=== PATIENT | male | born 1985 | race Caucasian/White ===

== ENCOUNTER 2020-02-25 02:33 | Emergency (ER) | payer OTHER, SELFPAY ==
--- NOTE | ~2020-02-25 | CT_ITS ---
EXAMINATION: CT abdomen pelvis wo con DATE: 02/25/2020 03:29 INDICATION: Right flank pain and hematuria TECHNIQUE: Computed tomography (CT) of the abdomen and pelvis was performed without intravenous contr ast. The dose-length product (DLP) was 429.53 mGy-cm. Automated exposure control and iterative recons truction technique were employed. COMPARISON: None FINDINGS: The lung bases are clear. The heart size is normal. Surgical changes in the stomach are lik rhonda related to gastric bypass. The liver, spleen, pancreas, gallbladder, and adrenal glands are alayna l. There is a 4 mm nonobstructing stone of the left mid kidney. No stones are present in the right ki dney, the ureters, or the bladder. There is no hydronephrosis or hydroureter. No pathologically enlar ged abdominal or pelvic lymph nodes are identified. Right pelvic and inguinal lymph nodes are upper l imits of normal in size, likely reactive. The appendix is normal. There is no free intraperitoneal ga s or evidence of bowel obstruction. There is a fat-containing umbilical hernia. There is mild lumbar spondylosis. IMPRESSION: 1. Nonobstructing left nephrolithiasis. Reviewed, dictated and finalized at location A.
--- NOTE | ~2020-02-25 | XR_ITS ---
EXAMINATION: XR abdomen/kub 1V INDICATION: Right flank pain TECHNIQUE: Supine view of the abdomen is obtained. COMPARISON: CT of the same date FINDINGS: The left kidney stone demonstrated on CT is not identified. A phlebolith is noted in the ri ght pelvis. The bowel gas pattern is normal. IMPRESSION: 1. No radiographic correlate for the patient's symptoms. Reviewed, dictated and finalized at location A.
[2020-02-25 02:37] VITALS: BP 130/72; PULSE 71; RESP 17; TEMP 36.2; O2SAT 100
--- NOTE | 2020-02-25 03:19 | ED.BACK ---
HPI - Back Pain/Injury General Chief Complaint: Abdominal Pain Stated Complaint: Kidney Stone Time Seen by Provider: 02/25/20 02:41 Source: patient Mode of arrival: ambulatory Limitations: no limitations History of Present Illness HPI Narrative: This patient is a 34 year old male who presents for evaluation of right lower back pain . He states he developed right lower back pain 1 hour ago. He states this pain was severe but it has improved to 1/10. He does feel like his pain is increasing now. THis pain is similar to previous episode of kidney stone in the past. He also noticed blood in his urine yesterday. He denies associated nausea, vomiting, fever, chills, abdominal pain. He has not taken anything for pain. MD elicited complaint: back pain Pertinent past history: kidney stones Location: right lower back Radiation: none Exacerbating factors: none Relieving factors: none Related Data Allergies Allergy/AdvReac Type Severity Reaction Status Date / Time hydrocodone [From Vicodin] Allergy Intermediate Agitated Verified 02/25/20 02:46 acetaminophen AdvReac Intermediate unknown Verified 09/17/19 08:14 [place] Hornet Allergy Intermediate Anaphylactic Uncoded 09/17/19 08:14 Shock [place] Allergy Intermediate Anaphylactic Uncoded 09/17/19 08:14 Shock HYDROCODONE BIT AdvReac Intermediate unknown Uncoded 09/17/19 08:14 Review of Systems Review of Systems: All systems reviewed & are unremarkable except as noted in HPI and below Constitutional: Constitutional: Denies chills and Denies fever(s) Gastrointestinal: Gastrointestinal: Denies abdominal pain, Denies nausea and Denies vomiting Genitourinary: Genitourinary: Reports hematuria Musculoskeletal: Musculoskeletal: Reports back pain [facility] Past Medical History Medical History (Updated 02/25/20 @ 04:14 by Marilee Coburn MD) Hymenoptera allergy Tobacco abuse Surgical History Surgical History (Updated 02/25/20 @ 03:21 by Marilee Coburn MD) History of tonsillectomy and adenoidectomy S/P laparoscopic sleeve gastrectomy Social History Social History (System 09/17/19 @ 08:14 by Rosangela Mulligan) Tobacco type: smokeless tobacco Smokeless tobacco user: chewing tobacco Second hand tobacco smoke exposure: No Alcohol intake: current Substance use: never Substance use type: does not use Additional living arrangements comments: and 5 boys Gender identity (if verbalized by the patient): Male Spiritual care concerns: No Agree to blood products: No Exam Narrative: Exam Narrative: GENERAL: Well-appearing, well-nourished, and in no acute distress. HEAD: Normocephalic, atraumatic EYES: PERRLA and EOMI, conjunctiva clear without discharge THROAT:Mucous membranes moist, NECK: Supple, without lymphadenopathy or mass RESPIRATORY: No respiratory distress, Airway patent, Respirations non-labored, Clear to auscultation without rales, rhonchi or wheeze HEART: Regular rate and rhythm. No murmur heard. Normal peripheral pulses. ABDOMEN: Soft, nontender, nondistended, normal active bowel sounds. No masses. No rebound or guarding, No organomegaly. EXTREMITIES: No edema, normal strength with full range of motion. SKIN: Warm, dry, normal color without rash NEURO: Alert and oriented x3. CN 2-12 grossly intact. No focal deficits. PSYCH: Normal mood and affect. Course Reevaluation(s) Reevaluation #1: PAtient states he has not pain. I Discussed CT shows punctate stone on the left. There is no stone on the right. IT is possible he passed the stone on the right. Date: 02/25/20 Time: 04:10 Vital Signs Vital signs: Vital Signs Temperature 97.1 F L 02/25/20 02:37 Pulse Rate 71 02/25/20 02:37 Respiratory Rate 17 02/25/20 02:37 Blood Pressure 130/72 02/25/20 02:37 Pulse Oximetry 100 02/25/20 02:37 Temperature 97.1 F L 02/25/20 02:37 Pulse Rate 59 L 02/25/20 04:24 Respiratory Rate 18 02/25/20 04:2
--- NOTE | 2020-02-25 03:22 | PC.NURSE ---
Patient being taken to CT and xray.
[2020-02-25 03:39] LABS: Basophils Absolute Auto 0.1 K/mm3 (0.0-0.1); Basophils Percent Auto 0.6 % (0.2-1.2); Eosinophils Absolute Auto 0.9 K/mm3 (0-0.3); Eosinophils Percent Auto 11.5 % (0-4.4); Hematocrit 50.4 % (42.0-52.0); Hemoglobin 16.3 g/dL (14.0-18.0); Immature Granulocyte Absolute 0.04 K/mm3 (0.00-0.031); Immature Granulocyte Percent A 0.5 % (0-0.5); Lymphocytes Absolute Auto 2.87 K/mm3 (0.9-3.2); Lymphocytes Percent Auto 36.3 % (18.3-44.2); Mean Corpuscular HGB Conc 32.3 g/dl (32-36); Mean Corpuscular Hemoglobin 31.3 pg (26-34); Mean Corpuscular Volume 96.9 fl (80-100); Mean Platelet Volume 9.6 fl (7.4-10.4); Monocytes Absolute Auto 0.6 K/mm3 (0.1-0.6); Monocytes Percent Auto 7.2 % (2.6-8.5); Neutrophils Absolute Auto 3.5 K/mm3 (1.3-6.7); Neutrophils Percent Auto 43.9 % (45.5-73.1); Platelet Count Result 304 k/mm3 (150-375); Red Cell Distribution Width 14.6 % (11.5-14.5); White Blood Count 7.9 K/mm3 (4.5-10.0)
[2020-02-25 03:48] LABS: Add Urine Microscopic? YES; Appearance Urine Cloudy (Clear); Bilirubin Urine Negative (Negative); Blood Urine 3+ (Negative); Color Urine Yellow (Yellow); Glucose Urine UA Negative (Negative); Ketones Urine Trace mg/dL (Negative); Leukocyte Esterase Ur Negative LEU/UL (Negative); Mucus Urine Moderate /lpf; Nitrate Urine Negative (Negative); Protein Urine 2+ mg/dL (Negative); RBC Urine >75 /hpf (0-2); Specific Grav Ur 1.028 (1.001-1.035)
[2020-02-25 04:03] LABS: Anion Gap 8 mmol/L (8-16); Blood Urea Nitrogen 11 mg/dL (9-20); Calcium 9.2 mg/dL (8.4-10.2); Carbon Dioxide 28 mmol/L (22-30); Chloride 103 mmol/L (98-107); Estimated CRCL calculation 121 ml/min; Estimated Glomerular Filt Rate > 60; Glucose 83 mg/dL (75-110); Potassium 4.5 mmol/L (3.4-5.0); Sodium 139 mmol/L (137-145)
[2020-02-25 04:24] VITALS: BP 107/71; PULSE 59; RESP 18; O2SAT 98
== END 2020-02-25 04:26 | disposition home or self-care (01) ==
PROVIDERS: Emergency Provider General Practice; PCP Family Medicine
DX: N20.0 Calculus of kidney (principal); R31.9 Hematuria, unspecified; Z87.442 Personal history of urinary calculi; Z98.84 Bariatric surgery status; F17.220 Nicotine dependence, chewing tobacco, uncomplicated
CPT/HCPCS: 36415; 74018; 74176; 80048; 81001; 85025; 96365; 99284; J0131

== ENCOUNTER 2020-04-27 06:54 | Emergency (ER) | payer OTHER, SELFPAY ==
--- NOTE | ~2020-04-27 | CT_ITS ---
EXAMINATION: CT abdomen pelvis wo con DATE: 04/27/2020 10:19 INDICATION: Left flank pain TECHNIQUE: Computed tomography (CT) of the abdomen and pelvis was performed without intravenous contr ast. The dose-length product (DLP) was 664.51 mGy-cm. Automated exposure control and iterative recons truction technique were employed. COMPARISON: 02/25/2020 FINDINGS: The lung bases are clear. The heart size is normal. Surgical changes in the stomach are con sistent with gastric bypass. The liver, spleen, pancreas, gallbladder, and adrenal glands are normal. The right kidney is unremarkable. There is a 4 mm stone (previously identified in the kidney) at the left ureteropelvic junction which causes mild hydronephrosis. No pathologically enlarged abdominal o r pelvic lymph nodes are identified. There is no free intraperitoneal gas or evidence of bowel obstru ction. The appendix is normal. There is a tiny fat-containing umbilical hernia. There is mild lumbar spondylosis. IMPRESSION: 1. 4 mm stone at the left ureteropelvic junction causing mild hydronephrosis. Reviewed, dictated and finalized at location A. DRAWING CHECKER
--- NOTE | ~2020-04-27 | XR_ITS ---
EXAMINATION: XR abdomen/kub 1V EXAM DATE: 04/27/2020 09:55 INDICATION: Left-sided flank pain, history of right-sided stone 3 months ago. TECHNIQUE: Frontal projection of the upper abdomen, frontal projection lower abdomen/pelvis for inter pretation. There is no prior study for comparison. FINDINGS: There is expected amount of colonic stool and gas. No small bowel dilation, nonobstructiv e bowel gas pattern. There are no suspicious calcifications identified. There is no organomegaly suspected. The bones are unremarkable. IMPRESSION: Unremarkable abdomen x-ray exam. Reviewed, dictated and finalized at location B. GANG SAWYER
[2020-04-27 06:57] VITALS: BP 140/83; PULSE 72; RESP 18; TEMP 35.8; O2SAT 100
[2020-04-27 07:25] LABS: Basophils Percent Auto 0.4 % (0.2-1.2); Eosinophils Absolute Auto 0.1 K/mm3 (0-0.3); Eosinophils Percent Auto 0.9 % (0-4.4); Hematocrit 48.3 % (42.0-52.0); Hemoglobin 16.7 g/dL (14.0-18.0); Immature Granulocyte Absolute 0.02 K/mm3 (0.00-0.031); Immature Granulocyte Percent A 0.3 % (0-0.5); Lymphocytes Absolute Auto 1.96 K/mm3 (0.9-3.2); Mean Corpuscular HGB Conc 34.6 g/dl (32-36); Mean Corpuscular Hemoglobin 31.3 pg (26-34); Mean Corpuscular Volume 90.6 fl (80-100); Mean Platelet Volume 9.2 fl (7.4-10.4); Monocytes Absolute Auto 0.6 K/mm3 (0.1-0.6); Monocytes Percent Auto 7.3 % (2.6-8.5); Neutrophils Absolute Auto 5.2 K/mm3 (1.3-6.7); Neutrophils Percent Auto 66.1 % (45.5-73.1); Platelet Count Result 215 k/mm3 (150-375); Red Blood Count 5.33 M/mm3 (4.6-6.20); White Blood Count 7.8 K/mm3 (4.5-10.0)
[2020-04-27] MEDS: KETOROLAC 15 MG/ML VIAL (*BKC) IV PUSH (07:41)
[2020-04-27 07:42] LABS: Anion Gap 9 mmol/L (8-16); Blood Urea Nitrogen 15 mg/dL (9-20); Calcium 9.9 mg/dL (8.4-10.2); Carbon Dioxide 29 mmol/L (22-30); Chloride 102 mmol/L (98-107); Estimated CRCL calculation 105 ml/min; Estimated Glomerular Filt Rate > 60; Glucose 112 mg/dL (75-110); Potassium 3.6 mmol/L (3.4-5.0); Sodium 140 mmol/L (137-145)
--- NOTE | 2020-04-27 08:43 | PC.NURSE ---
Pt attempting to provide urine sample at this time
--- NOTE | 2020-04-27 08:44 | PC.NURSE ---
Addendum entered by Jayla Hughes RN 04/27/20 08:46: Time:[id number] Original Note: Pt states he is in too much pain to attempt to give urine sample. Pt is visible uncomfortable, unable to sit in one spot, moaning
[2020-04-27 09:25] LABS: Add Urine Microscopic? YES; Appearance Urine Clear (Clear); Bilirubin Urine Negative (Negative); Blood Urine 3+ (Negative); Color Urine Yellow (Yellow); Glucose Urine UA Negative (Negative); Ketones Urine Negative (Negative); Leukocyte Esterase Ur Negative LEU/UL (Negative); Mucus Urine Heavy /lpf; Nitrate Urine Negative (Negative); Protein Urine 2+ mg/dL (Negative); RBC Urine >75 /hpf (0-2); Specific Grav Ur 1.028 (1.001-1.035)
[2020-04-27 10:24] VITALS: BP 121/70; PULSE 49; RESP 18; O2SAT 98
--- NOTE | 2020-04-27 11:12 | ED.GENADULT ---
HPI - General Adult General Chief complaint: Back Pain/Injury Stated complaint: left flank pain Time Seen by Provider: 04/27/20 07:17 History of Present Illness HPI narrative: Patient is a 34-year-old male who presents ER with left-sided flank pain. Sudden onset this morning. Sharp and nonradiating. No nausea vomiting or sweats. Feels similar to previous kidney stone. Has a known stone in the left kidney. No urinary frequency/urgency/hematuria/testicular pain. No alleviating factors Related Data Allergies Allergy/AdvReac Type Severity Reaction Status Date / Time hydrocodone [From Vicodin] Allergy Intermediate Agitated Verified 04/27/20 07:26 acetaminophen AdvReac Intermediate unknown Verified 04/27/20 07:26 ibuprofen AdvReac Other Verified 04/27/20 07:26 [place]et Allergy Intermediate Anaphylactic Uncoded 04/27/20 07:26 Shock [place] Allergy Intermediate Anaphylactic Uncoded 04/27/20 07:26 Shock HYDROCODONE BIT AdvReac Intermediate unknown Uncoded 04/27/20 07:26 Review of Systems Review of Systems: All systems reviewed & are unremarkable except as noted in HPI and below Constitutional: Constitutional: Denies chills, Denies fever(s) and Denies weakness ENT: Denies nasal congestion and Denies sore throat Gastrointestinal: Gastrointestinal: Denies abdominal pain, Denies diarrhea, Denies nausea and Denies vomiting Genitourinary: Genitourinary: Denies oliguria, Denies dysuria and Denies urinary frequency Comments: Left flank pain PMFSH Past Medical History Medical History (Updated 04/27/20 @ 11:21 by Hussein López MD) Hymenoptera allergy Kidney stones Tobacco abuse Surgical History Surgical History (Updated 04/27/20 @ 11:20 by Hussein López MD) H/O gastric bypass History of tonsillectomy and adenoidectomy S/P laparoscopic sleeve gastrectomy Family History Family History (System 09/17/19 @ 08:14 by Rosangela Mulligan) Father Heart disease Grandparent Parkinsons disease Grandparent Diabetes mellitus Grandparent Heart attack Grandparent Lung cancer Cerebrovascular accident Father Hypertension Family history of coronary artery disease Grandparent Hypertension Family history of lung cancer Family history of coronary artery disease Social History Social History (System 03/27/20 @ 08:14 by Rosangela Rousseau Tobacco type: smokeless tobacco Smokeless tobacco user: chewing tobacco Second hand tobacco smoke exposure: No Alcohol intake: current Substance use: never Substance use type: does not use Additional living arrangements comments: and 5 boys Gender identity (if verbalized by the patient): Male Spiritual care concerns: No Agree to blood products: No Exam Narrative: Exam Narrative: GENERAL: Well-appearing, well-nourished, and in no acute distress. HEAD: Normocephalic, atraumatic. ENT: Mucous membranes moist. CHEST: Clear to auscultation. No respiratory distress. HEART: Regular rate and rhythm. Normal peripheral pulses. ABDOMEN: Soft, nontender, nondistended. No CVA tenderness. EXTREMITIES: Normal range of motion. No edema. SKIN: Warm, dry, no rash. NEURO: Alert and oriented x3. Course Course Emergency Course: Patient informed of results. Discharge home. Recommend urology follow-up. Vital Signs Vital signs: Vital Signs Temperature 96.5 F L 04/27/20 06:57 Pulse Rate 72 04/27/20 06:57 Respiratory Rate 18 04/27/20 06:57 Blood Pressure 140/83 04/27/20 06:57 Pulse Oximetry 100 04/27/20 06:57 Temperature 96.5 F L 04/27/20 06:57 Pulse Rate 49 L 04/27/20 10:24 Respiratory Rate 18 04/27/20 10:24 Blood Pressure 121/70 04/27/20 10:24 Pulse Oximetry 98 04/27/20 10:24 Medical Decision Making Vital Signs Vital Signs: Vital Signs Temperature 96.5 F L 04/27/20 06:57 Pulse Rate 72 04/27/20 06:57 Respiratory Rate 18 04/27/20 06:
[2020-04-27 11:55] VITALS: BP 137/63; PULSE 55; RESP 18; O2SAT 100
== END 2020-04-27 12:10 | disposition home or self-care (01) ==
PROVIDERS: Emergency Provider Emergency Medicine; PCP Family Medicine
DX: N13.2 Hydronephrosis with renal and ureteral calculous obstruction (principal); Z87.442 Personal history of urinary calculi; Z98.84 Bariatric surgery status; F17.220 Nicotine dependence, chewing tobacco, uncomplicated
CPT/HCPCS: 36415; 74018; 74176; 80048; 81001; 85025; 87086; 96374; 99284; J1885

== ENCOUNTER 2022-01-02 09:04 | Emergency (ER) | payer OTHER, SELFPAY ==
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
[2022-01-02 09:18] VITALS: BP 125/70; PULSE 70; RESP 16; TEMP 36.7; O2SAT 99
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
== END 2022-01-02 10:23 | disposition home or self-care (01) ==
PROVIDERS: Emergency Provider Nurse Practitioner; PCP Family Medicine
DX: S13.9XXA Sprain of joints and ligaments of unspecified parts of neck, initial encounter (principal); V43.52XA Car driver injured in collision with other type car in traffic accident, initial encounter; Z98.84 Bariatric surgery status
CPT/HCPCS: 72050; 99213; G0463

== ENCOUNTER 2022-05-08 16:27 | Emergency (ER) | payer OTHER, SELFPAY ==
--- NOTE | ~2022-05-08 | XR_ITS ---
EXAMINATION: XR finger 5th LT min 2V DATE: 05/08/2022 16:56 INDICATION: Crush injury to the left fifth digit TECHNIQUE: Dorsal palmar, lateral and oblique views of the left fifth digit were obtained COMPARISON: None FINDINGS: Amputation of the tip of the distal phalanx of the left fifth digit which includes the tuft of the di stal phalanx of the left fifth digit. No other fractures identified. Mild osteoarthritis at the fifth distal interphalangeal joint. IMPRESSION: 1. Open/compound fracture with amputation of the tip of the left fifth digit which includes the tuft of the distal phalanx. Reviewed, dictated and finalized at location B. L MACHINE OPERATOR IMPRESSION: 1. Open/compound fracture with amputation of the tip of the left fifth digit wh ich includes the tuft of the distal phalanx.
[2022-05-08 16:33] VITALS: BP 123/81; PULSE 76; RESP 16; TEMP 36.3; O2SAT 100
--- NOTE | 2022-05-08 17:25 | ED.GENADULT ---
HPI - General Adult General Chief complaint: Extremity Injury, Upper Stated complaint: cut off right finger end Time Seen by Provider: 05/08/22 16:48 Source: patient Mode of arrival: ambulatory Limitations: no limitations History of Present Illness HPI narrative: 36 years old white male presented to the ED with left fifth finger injury. Patient was moving deep freezer somehow slipped and landed on the tip of his left fifth finger., Amputated. Unknown duration of tetanus shot. Patient denies other injuries Related Data Allergies Allergy/AdvReac Type Severity Reaction Status Date / Time hydrocodone [From Vicodin] Allergy Intermediate Agitated Verified 02/01/22 09:22 acetaminophen AdvReac Intermediate unknown Verified 02/01/22 09:22 ibuprofen AdvReac Unknown Other Verified 02/01/22 09:22 [place]et Allergy Intermediate Anaphylactic Uncoded 11/30/21 12:18 Shock [place] Allergy Intermediate Anaphylactic Uncoded 11/30/21 12:18 Shock HYDROCODONE BIT AdvReac Intermediate unknown Uncoded 11/30/21 12:18 Review of Systems Review of Systems: All systems reviewed & are unremarkable except as noted in HPI and below PMFSH Past Medical History Medical History Atopic dermatitis Hymenoptera allergy Kidney stones Tobacco abuse 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 ) Tobacco type: cigarettes (0.5 for the past 2 years. ) and smokeless tobacco Smokeless tobacco user: chewing tobacco Second hand tobacco smoke exposure: No Alcohol intake: current Alcohol use details: rarely Substance use: never Substance use type: does not use Additional living arrangements comments: and 5 boys Gender identity (if verbalized by the patient): Male Spiritual care concerns: No Agree to blood products: No Exam Narrative: General appearance: Well-developed, well-nourished Skin: Normal color Head: Normocephalic, nontraumatic Vascular: Normal peripheral pulses, normal capillary refill. Musculoskeletal: Amputation of the tip of the left fifth finger. Controlled bleeding. Exposed bone Neurologic: Alert and oriented ?3, FLATWORK IRONER is normal as tested, no gross motor deficit Course REPAIR OPERATOR/PA Physician Supervision Patient declined to go to [facility] ED by ambulance and he will drive over there. Consultations Consultation #1: Dr. Beyer Date: 05/08/22 Time: 17:54 Consultation #2: DR WILKINSON, hand surgeon at [facility] who accepted patient transfer to [facility] Date: 05/08/22 Time: 17:54 Consultation #3: DR GARCIA, hand surgeon at [place] who is telling me that reconnection of the distal part of the finger is not recommended. Additional Consultation(s): DR DUQUE, emergency room at [facility] who accepted patient patient Vital Signs Vital signs: Vital Signs Tem
[2022-05-08] MEDS: TETANUS,DIPHTHERIA,AC PERTUSSIS ADULT (0.5 ML) BOOSTRIX IM (17:46)
[2022-05-08] MEDS: ONDANSETRON INJ 4 MG/2 ML VIAL IV PUSH (17:46)
[2022-05-08] MEDS: HYDROmorphone HCL INJ (*CRX) 1 MG/ML SYR 0.5 MG IV PUSH ×2 (17:48→18:39)
[2022-05-08] MEDS: ceFAZolin 2 GM/D5W 50 ML 2 GM/50 ML BAG IVPB (18:02)
== END 2022-05-08 19:30 | disposition short-term general hospital (02) ==
PROVIDERS: Emergency Provider Emergency Medicine; PCP Family Medicine
DX: S62.637B Displaced fracture of distal phalanx of left little finger, initial encounter for open fracture (principal); W20.8XXA Other cause of strike by thrown, projected or falling object, initial encounter; Z72.0 Tobacco use; Z87.442 Personal history of urinary calculi; Z23 Encounter for immunization
CPT/HCPCS: 73140; 90471; 90715; 96365; 96375; 96376; 99284; J0690; J1170; J2405

== ENCOUNTER 2022-12-19 05:10 | Observation (INO) | payer OTHER, SELFPAY ==
[2022-12-19] VITALS (9 sets, daily range): BP systolic 117–137; BP diastolic 76–87; PULSE 53–71; RESP 14–18; TEMP 36.3–36.7; O2SAT 97–100
--- NOTE | ~2022-12-19 | XR_ITS ---
EXAMINATION: XR abdomen/kub 1V INDICATION: Left flank pain TECHNIQUE: Supine views of the abdomen were obtained on 2 radiographs. COMPARISON: CT from today FINDINGS: A 4 mm stone projects in the expected location of the proximal left ureter, overlying the l eft L2 transverse process, corresponding to the stone described on today's CT. No additional urolithi asis is identified. The bowel gas pattern is normal. There is a phlebolith of the right pelvis. There is mild osteoarthritis of the hips. IMPRESSION: 1. 4 mm proximal left ureteral stone. Reviewed, dictated and finalized at location L.
--- NOTE | ~2022-12-19 | CT_ITS ---
Non-contrast CT scan of the Abdomen and Pelvis Clinical indication: Left flank pain, hematuria Technique: 2.5 mm axial scans were obtained through the abdomen and pelvis without intravenous or or al contrast. Dose reduction technique was used on this scan by utilizing automated exposure control a nd iterative reconstruction technique. The dose-length product (DLP) was 231.64 mGy-cm. COMPARISON: 04/27/2020 Findings: Images through the lung bases reveal no abnormalities. 5 mm proximal left ureteral stone is present (axial image 72), with mild left hydronephrosis and mild left perinephric stranding. Additional punctate nonobstructing left renal stone present. No right re nal or right ureteral stone. No right hydronephrosis. The liver, spleen, pancreas, gallbladder, and adrenals appear normal. There is no aortic aneurysm. There is no evidence of bowel obstruction. Normal appendix. Images through the pelvis were performed. There is no evidence of ascites or lymphadenopathy. Urinary bladder unremarkable. Prostate gland and seminal vesicles are unremarkable. Impression: 5 mm proximal left ureteral stone with mild left hydronephrosis. Additional punctate nonobstructing left renal stone. Reviewed, dictated and finalized at [facility]. Impression: 5 mm proximal left ureteral stone with mild left hydronephrosis. Additional punctate nonobstructing left renal stone.
--- NOTE | ~2022-12-19 | XR_ITS ---
Supine and upright views of the abdomen Clinical history: Left ureteral stone COMPARISON: 12/19/2022 Findings: Bowel gas pattern is nonspecific. No evidence for obstruction or free air. Probable 3 mm le ft ureteral stone projecting between the level of the L2 and L3 transverse processes. Osseous structu res are intact. Impression: Probable 3 mm mid left ureteral stone, as detailed above. Reviewed, dictated and finalized at location . Impression: Probable 3 mm mid left ureteral stone, as detailed above.
[2022-12-19 05:28] LABS: Basophils Absolute Auto 0.1 K/mm3 (0.0-0.1); Basophils Percent Auto 0.6 % (0.2-1.2); Eosinophils Absolute Auto 0.1 K/mm3 (0-0.3); Eosinophils Percent Auto 0.8 % (0-4.4); Hematocrit 43.5 % (42.0-52.0); Hemoglobin 14.6 g/dL (14.0-18.0); Immature Granulocyte Absolute 0.05 K/mm3 (0.00-0.031); Immature Granulocyte Percent A 0.5 % (0-0.5); Lymphocytes Absolute Auto 2.23 K/mm3 (0.9-3.2); Mean Corpuscular HGB Conc 33.6 g/dl (32-36); Mean Corpuscular Hemoglobin 31.3 pg (26-34); Mean Corpuscular Volume 93.3 fl (80-100); Mean Platelet Volume 9.6 fl (7.4-10.4); Monocytes Percent Auto 9.3 % (2.6-8.5); Neutrophils Absolute Auto 7.2 K/mm3 (1.3-6.7); Neutrophils Percent Auto 67.8 % (45.5-73.1); Platelet Count Result 209 k/mm3 (150-375); Red Blood Count 4.66 M/mm3 (4.6-6.20); Red Cell Distribution Width 12.4 % (11.5-14.5); White Blood Count 10.6 K/mm3 (4.5-10.0)
[2022-12-19 05:38] LABS: Alanine Aminotransferase 25 U/L (6-50); Albumin Level 4.2 g/dL (3.5-5.1); Alkaline Phosphatase 44 U/L (38-126); Anion Gap 7 mmol/L (8-16); Aspartate Amino Transferase 28 U/L (17-59); Bilirubin,Total 0.8 mg/dL (0.2-1.3); Blood Urea Nitrogen 20 mg/dL (9-20); Calcium 9.2 mg/dL (8.4-10.2); Carbon Dioxide 26 mmol/L (22-30); Chloride 104 mmol/L (98-107); Estimated CRCL calculation 86 ml/min; Estimated Glomerular Filt Rate > 60; Glucose 93 mg/dL (65-110); Potassium 3.8 mmol/L (3.4-5.0); Sodium 137 mmol/L (137-145)
[2022-12-19] MEDS: HYDROmorphone HCL INJ (*CRX) 1 MG/ML SYR IV PUSH ×6 (05:57→20:56)
[2022-12-19] MEDS: SODIUM CHLORIDE 0.9% IV 1,000 ML 999 ML IV CONT (05:58)
[2022-12-19] MEDS: ONDANSETRON INJ 4 MG/2 ML VIAL IV PUSH ×2 (05:59→17:55)
[2022-12-19 06:15] LABS: Appearance Urine Turbid (Clear); Bacteria Urine None Seen /hpf; Bilirubin Urine 1+ (Negative); Blood Urine 3+ (Negative); Calcium Oxalate Crystals Urine Present /hpf; Color Urine Dark Yellow (Yellow); Glucose Urine UA Negative (Negative); Ketones Urine Negative (Negative); Leukocyte Esterase Ur 1+ LEU/UL (Negative); Mucus Urine Present /lpf; Nitrate Urine Negative (Negative); Protein Urine 2+ mg/dL (Negative); RBC Urine >100 /hpf (0-2); Squamous Epithelial Cell Urine None seen /hpf (Few); WBC Urine 0-5 /hpf; pH Urine 5.5 (5.0-9.0)
[2022-12-19 06:16] LABS: Specific Grav Ur 1.039 (1.001-1.035)
[2022-12-19 06:18] LABS: Add Urine Microscopic? YES
--- NOTE | 2022-12-19 06:36 | ED.GENADULT ---
HPI - General Adult General Chief complaint: Urogenital-Male <Haim Cruz MD - Last Filed: 12/19/22 19:02> Stated complaint: kidney stone <Haim Cruz MD - Last Filed: 12/19/22 19:02> Time Seen by Provider: 12/19/22 05:57 <Haim Cruz MD - Last Filed: 12/19/22 19:02> History of Present Illness HPI narrative: 37-year-old male with history of kidney stones presented the emergency department for evaluation of left flank pain. Patient states he started having the pain on Friday and the pain improved and then once again the pain worsened again on Friday and has persisted since midnight. Patient does report passing blood in his urine since last night. Patient is not on any blood thinners. Patient does have a prior history of kidney stones approximately 2 years ago's. <Haim Cruz MD - Last Filed: 12/19/22 19:02> Related Data Allergies/adverse reactions: Allergies Allergy/AdvReac Type Severity Reaction Status Date / Time hydrocodone [From Vicodin] Allergy Intermediate Agitated Verified 12/19/22 05:17 acetaminophen AdvReac Intermediate unknown Verified 12/19/22 05:17 ibuprofen AdvReac Unknown Other Verified 12/19/22 05:17 [place]et Allergy Intermediate Anaphylactic Uncoded 12/19/22 05:17 Shock [place] Allergy Intermediate Anaphylactic Uncoded 12/19/22 05:17 Shock <Haim Cruz MD - Last Filed: 12/19/22 19:02> Review of Systems Review of Systems: All systems reviewed & are unremarkable except as noted in HPI and below <Haim Cruz MD - Last Filed: 12/19/22 19:02> PMFSH Past Medical History Medical History: Medical History Atopic dermatitis Hymenoptera allergy Kidney stones Tobacco abuse 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 <Haim Cruz MD - Last Filed: 12/19/22 19:02> Surgical History Surgical History: Surgical History H/O gastric bypass H/O gastric bypass History of tonsillectomy and adenoidectomy S/P laparoscopic sleeve gastrectomy <Haim Cruz MD - Last Filed: 12/19/22 19:02> Family History Family History: Family History Father Heart disease Grandparent Parkinsons disease Grandparent Diabetes mellitus Grandparent Heart attack Grandparent Lung cancer Cerebrovascular accident Father Hypertension Family history of coronary artery disease Grandparent Hypertension Family history of lung cancer Family history of coronary artery disease <Haim Cruz MD - Last Filed: 12/19/22 19:02> Social History Social History: Social History (Updated 12/19/22 @ 16:32 by Celina Pitts NP) Social History: The patient currently lives with his fiancee. He has 5 children. 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 He does not have a power business attorney. Code status full code Smoking status: Former smoker Smokeless tobacco user: chewing tobacco Second hand tobacco smoke exposure: No Alcohol intake: current Alcohol use details: rarely Substance use: never Substance use type: does not use Lack of Transportation: No Lack of Food: Never True Current Housing: I Have Housing Concerned About Future Housing: No Difficulty Paying Gas/Electric Bills: No Difficulty Paying for Meds: No Currently Unemployed: No Education: High School Diploma/GED Difficulty w/ Childcare or Family Care: No Living arrangements: with family Additional living arrangements comments: and 5 boys Occupation/Education: occupation Gender identity (if verbalized by the patient): Male Spiritual care concerns: No Agree to blood products: No <Haim Cruz MD - Last Filed: 12/19/22 19:02> Exam Narrative: APPEARANCE: Well appearing, no pain, no distress, well
[2022-12-19] MEDS: HYDROmorphone HCL INJ (*CRX) 1 MG/ML SYR 0.5 MG IV PUSH ×2 (09:16→10:38)
[2022-12-19] MEDS: levoFLOXacin 750 MG/D5W 150 ML 750 MG/150 ML BAG 100 MG IVPB ×2 (09:23→17:26)
[2022-12-19] MEDS: LACTATED RINGERS 1,000 ML 100 ML IV CONT (11:39)
--- NOTE | 2022-12-19 13:24 | PM.IMHP ---
H&P: HPI History of Present Illness Date/Time: 12/19/22 13:24 Chief Complaint: Flank pain Narrative: This is a 37-year-old male patient who has a history of kidney stones. The patient came to the emergency room today for complaints of left flank pain. The patient stated that the pain started on Friday however did subsequently resolve. And then came back on Friday and has been persistent since then. The patient has been passing blood in his urine since last night. The patient is not on any blood thinners. Approximately 2 years ago was his last kidney stone. His white count is 10.6. Abdominal x-ray shows a 4 mm proximal left ureteral stone. Abdominal pelvis CT was read as the following5 mm proximal left ureteral stone with mild left hydronephrosis. Additional punctate nonobstructing left renal stone. The patient was given Dilaudid, normal saline, and Levaquin. Urology has been consulted. She denies any fever chills or any nausea vomiting. Patient is being admitted to observation status on the date of service of 12/19/2022. Review of Systems Review of Systems: All systems reviewed & are unremarkable except as noted in HPI and below Constitutional: Constitutional: Reports as per HPI and Reports no additional constitutional complaints Eyes: Eyes: Reports as per HPI and Reports no additional eye complaints ENT: Reports system reviewed and no additional complaints, except as documented and Reports Normal hearing present Cardiovascular: Cardiovascular: Reports no additional cardiovascular complaints Respiratory: Respiratory: Reports no additional respiratory complaints and Reports no additional respiratory complaints Gastrointestinal: Gastrointestinal: Reports as per HPI and Reports no additional gastrointestinal complaints Musculoskeletal: Musculoskeletal: Reports no additional musculoskeletal complaints Integumentary/Breasts: Skin/Breast: Reports system reviewed and no additional complaints, except as docu and Reports as per HPI Neurologic: Reports system reviewed and no additional complaints, except as documented, Reports as per HPI and Reports Normal hearing present Psychiatric: Psychiatric: Reports no additional psychiatric complaints and Reports as per HPI Endocrine: Endocrine: Reports no additional endocrine complaints Hematologic/Lymphatic: Hematologic/Lymphatic: Reports no additional hematologic/lymphatic complaints Allergic/Immunologic: Allergic/Immunologic: Reports no additional allergic/immunologic complaints [facility] Past Medical History Medical History Atopic dermatitis Hymenoptera allergy Kidney stones Tobacco abuse 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 Surgical History Surgical History H/O gastric bypass H/O gastric bypass History of tonsillectomy and adenoidectomy S/P laparoscopic sleeve gastrectomy Family History Family History Father Heart disease Grandparent Parkinsons disease Grandparent Diabetes mellitus Grandparent Heart attack Grandparent Lung cancer Cerebrovascular accident Father Hypertension Family history of coronary artery disease Grandparent Hypertension Family history of lung cancer Family history of coronary artery disease Social History Social History (Updated 12/19/22 @ 16:32 by Celina Pitts NP) Social History: The patient currently lives with his fiancee. He has 5 children. 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 He does not have a power assistant county attorney. Code status full code Smoking status: Former smoker Smokeless tobacco user: chewing tobacco Second hand tobacco smoke exposure: No Alcohol intake: current Alcohol use details: rarely Substance use: never Substance use type: does not use Lack of Transportation: No Lack of
--- NOTE | 2022-12-19 13:38 | WPDURCON ---
Assessment and Plan Assessment and plan (1) Left ureteral stone: Code(s): N20.1 - Calculus of ureter Status: Acute Plan patient being admitted for hydration analgesics overnight. Will plan left ESWL on Friday. Anticipate discharge following ESWL. Urology Consult Note HPI Date Seen: 12/19/22 Requesting Physician: Asuncion Hanson MD Primary Care Provider: Vika Mosquera MD Consult Narrative Narrative: Taras Gaming Jr. is a 37 year old male known to me from a prior vasectomy years ago but without history of urolithiasis that have required urological intervention. Presents to the ER with a 2-3 day history of left flank pain and scant gross hematuria. CT imaging demonstrates a 4-5 mm obstructing stone in the left mid ureter. He is admitted for hydration analgesics. After discussion of options we will proceed with in Situ left ESWL tomorrow. He he has been afebrile and his urine does not appear infected (nitrate negative without significant pyuria). 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 Surgical History Surgical History H/O gastric bypass H/O gastric bypass History of tonsillectomy and adenoidectomy S/P laparoscopic sleeve gastrectomy Family History Family History Father Heart disease Grandparent Parkinsons disease Grandparent Diabetes mellitus Grandparent Heart attack Grandparent Lung cancer Cerebrovascular accident Father Hypertension Family history of coronary artery disease Grandparent Hypertension Family history of lung cancer Family history of coronary artery disease Social History Social History Smoking status: Former smoker Smokeless tobacco user: chewing tobacco Second hand tobacco smoke exposure: No Alcohol intake: current Alcohol use details: rarely Substance use: never Substance use type: does not use Lack of Transportation: No Lack of Food: Never True Current Housing: I Have Housing Concerned About Future Housing: No Difficulty Paying Gas/Electric Bills: No Difficulty Paying for Meds: No Currently Unemployed: No Education: High School Diploma/GED Difficulty w/ Childcare or Family Care: No Living arrangements: with family Additional living arrangements comments: and 5 boys Occupation/Education: occupation Gender identity (if verbalized by the patient): Male Spiritual care concerns: No Agree to blood products: No Meds Home Medications and Allergies Home Medications Medication Instructions Recorded Confirmed Type epinephrine 0.3 mg/0.3 mL 0.3 mg (0.3 mL) IM ONCE #2 ea 10/14/22 11/04/22 Rx injection, auto-injector (EpiPen 2-Devon) bupropion HCl 150 mg 24 hr tablet, 150 mg PO QAM #30 tabs 11/29/22 Rx extended release Allergies Allergy/AdvReac Type Severity Reaction Status Date / Time hydrocodone [From Vicodin] Allergy Intermediate Agitated Verified 12/19/22 05:17 acetaminophen AdvReac Intermediate unknown Verified 12/19/22 05:17 ibuprofen AdvReac Unknown Other Verified 12/19/22 05:17 [place]et Allergy Intermediate Anaphylactic Uncoded 12/19/22 05:17 Shock [place] Allergy Intermediate Anaphylactic Uncoded 12/19/22 05:17 Shock Vital Signs Vital Signs - 24 hr 12/19/22 05:15 12/19/22 06:11 12/19/22 1
[2022-12-20] VITALS (7 sets, daily range): BP systolic 107–130; BP diastolic 67–81; PULSE 54–77; RESP 10–16; TEMP 36.4–36.7; O2SAT 98–100
[2022-12-20] MEDS: HYDROmorphone HCL INJ (*CRX) 1 MG/ML SYR IV PUSH ×4 (00:05→08:35)
[2022-12-20] MEDS: LACTATED RINGERS 1,000 ML 100 ML IV CONT ×2 (03:30→08:35)
[2022-12-20 06:09] LABS: Basophils Percent Auto 0.3 % (0.2-1.2); Eosinophils Absolute Auto 0.1 K/mm3 (0-0.3); Eosinophils Percent Auto 0.6 % (0-4.4); Hematocrit 40.5 % (42.0-52.0); Hemoglobin 13.6 g/dL (14.0-18.0); Immature Granulocyte Absolute 0.04 K/mm3 (0.00-0.031); Immature Granulocyte Percent A 0.4 % (0-0.5); Lymphocytes Absolute Auto 2.05 K/mm3 (0.9-3.2); Lymphocytes Percent Auto 19.9 % (18.3-44.2); Mean Corpuscular HGB Conc 33.6 g/dl (32-36); Mean Corpuscular Hemoglobin 31.3 pg (26-34); Mean Corpuscular Volume 93.1 fl (80-100); Mean Platelet Volume 9.6 fl (7.4-10.4); Monocytes Absolute Auto 1.3 K/mm3 (0.1-0.6); Monocytes Percent Auto 12.6 % (2.6-8.5); Neutrophils Absolute Auto 6.8 K/mm3 (1.3-6.7); Neutrophils Percent Auto 66.2 % (45.5-73.1); Platelet Count Result 172 k/mm3 (150-375); Red Blood Count 4.35 M/mm3 (4.6-6.20); Red Cell Distribution Width 12.3 % (11.5-14.5); White Blood Count 10.3 K/mm3 (4.5-10.0)
[2022-12-20 06:15] LABS: Lactic Acid Reflex 0.8 mmol/L (0.7-2.0)
[2022-12-20 06:16] LABS: Alanine Aminotransferase 21 U/L (6-50); Albumin Level 3.5 g/dL (3.5-5.1); Alkaline Phosphatase 30 U/L (38-126); Anion Gap 4 mmol/L (8-16); Aspartate Amino Transferase 24 U/L (17-59); Bilirubin,Total 1.1 mg/dL (0.2-1.3); Blood Urea Nitrogen 14 mg/dL (9-20); Calcium 8.5 mg/dL (8.4-10.2); Carbon Dioxide 27 mmol/L (22-30); Chloride 103 mmol/L (98-107); Estimated CRCL calculation 73 ml/min; Estimated Glomerular Filt Rate > 60; Glucose 83 mg/dL (65-110); Magnesium 1.8 mg/dL (1.6-2.3); Potassium 3.8 mmol/L (3.4-5.0); Sodium 134 mmol/L (137-145)
--- NOTE | 2022-12-20 06:23 | WPDHPUPDATE1 ---
History and Physical Update Update Date/Time: 12/20/22 06:23 History and Physical has been reviewed, including an updated exam of the patient. There are NO changes in the patient's condition. Risks, benefits, and alternatives have been discussed and questions answered. Patient agrees to proceed with procedure.
--- NOTE | 2022-12-20 07:53 | PM.DS ---
DS: Admitting Diagnosis Discharge Date 12/20/22 Admitting Diagnosis Kidney stone with hydronephrosis DS: Discharge Diagnosis Discharge Diagnosis (1) Left ureteral stone: Code(s): N20.1 - Calculus of ureter Status: Acute Assessment and Plan: Continue with IV fluids Continue to strain all urine. Urology has been consulted. Continue with analgesics. The patient cannot have any NSAIDs as he has a history of having a gastric sleeve. The patient is also allergic to [place] because of the Tylenol. Continue with Levaquin DS: Summary Hospital Course Hospital Course: patient is a 37-year-old male with a past medical history kidney stones, tobacco abuse, gastric bypass who presented to the ED on the for left flank pain. CT of the abdomen and pelvis did show a 5 mm stone with left-sided hydronephrosis. Abdominal x-ray confirmed wheezes. Urology was consulted patient went for lithotripsy. Pain medications have been provided and procedure was successful. Currently patient is denying any chest pain, shortness a breath, nausea, vomiting, diarrhea or constipation. Patient is stable per labs and vital signs for discharge at this time. Patient will need to follow up with Urology as instructed. Patient is being discharged home for self-care. Status at Discharge Functional status at discharge: independent ambulation Overall status at discharge: patient is progressing back to baseline Time Spent with Patient Time attestation: Total time spent providing and/or coordinating discharge services: 48 minutes Time spent: Greater than 30 minutes Specific discharge activities: Diagnostic testing, chart review, developing a treatment plan, education, care coordination documentation, physical exam, result review Exam Narrative: General: well-nourished, well-appearing 37-year-old female, sitting up in bed, comfortable, NARD Neuro: awake, alert and oriented x4, speech clear, no focal neuro deficits noted HEENMT: normocephalic, atraumatic, EOMI, sclerae anicteric, moist oral mucosa Respiratory: Clear to auscultation bilaterally without crackles, rhonchi or wheezes, nonlabored breathing Cardio: regular rate, regular rhythm with S1-S2 Abdomen: nondistended, normoactive bowel sounds, soft, nontender to palpation Extremities: no edema, erythema, or tenderness to palpation, DP pulses 2+ bilaterally Skin: no rashes or lesions, warm and dry Psych: appropriate mood and affect, judgment and insight intact DS: Data Data Completed and Pending Labs on day of discharge: Labs from last 24 hours 12/20/22 05:43 WBC 10.3 H RBC 4.35 L Hgb 13.6 L Hct 40.5 L MCV 93.1 MCH 31.3 MCHC 33.6 RDW 12.3 Plt Count 172 MPV 9.6 Immature Gran % (Auto) 0.4 Neut % (Auto) 66.2 Lymph % (Auto) 19.9 [place] % (Auto) 12.6 H Eos % (Auto) 0.6 Baso % (Auto) 0.3 Lymph # (Auto) 2.05 [place] # (Auto) 1.3 H Eos # (Auto) 0.1 Baso # (Auto) 0.0 Abs Immat Gran (auto) 0.04 H Absolute Neuts (auto) 6.8 H Absolute Nucleated RBC 0.0 Nucleated RBC % 0.0 Sodium 134 L Potassium 3.8 Chloride 103 Carbon Dioxide 27 Anion Gap 4 L BUN 14 D Creatinine 1.20 Estim Creat Clear Calc 73 Estimated GFR > 60 Glucose 83 Lactic Acid 0.8 Calcium 8.5 Magnesium 1.8 Total Bilirubin 1.1 AST 24 ALT 21 Alkaline Phosphatase 30 L Total Protein 6.0 L Albumin 3.5 TSH (Reflex) 1.980 Discharge Plan Discharge Attending physician on discharge: Taras Mukherjee Consulting providers: Jason Clark Discharging Clinician: Miguel Roa Anticipated Discharge Date/Time: 12/20/22 16:00 Patient Disposition: Home, Self-Care Activity: may shower, unlimited and as tolerated Diet: regular Wound Care Instructions: other - see discharge instructions Discharge Instructions: Take all medications as prescribed even if feeling better Eat well balanced meals and stay hydrated Keep active Trend urine ou
[2022-12-20] MEDS: ONDANSETRON INJ 4 MG/2 ML VIAL IV PUSH (08:34)
[2022-12-20] MEDS: HYDROmorphone HCL INJ (*CRX) 1 MG/ML SYR 2 MG IV PUSH (11:12)
[2022-12-20] MEDS: LACTATED RINGERS 1,000 ML 30 ML IV CONT (12:40)
--- NOTE | 2022-12-20 13:34 | WPDANESEPPF ---
Anes - Initial Pre Proc Eval Procedure: Operation Date: 12/20/22 13:30 Proposed Procedures p Left Extracorporeal Shock Wave Lithotripsy - Jason Clark MD Date/Time: 12/20/22 13:34 Surgeon: Asuncion Hanson MD Pre Op Diagnosis: left proximal ureteric stone Patient Data Age: 37 Gender: M Height: 1.73 m Weight: 79.5 kg Last Vital Signs Temp 36.6 C 12/20/22 06:00 Pulse 59 L 12/20/22 12:50 Resp 14 12/20/22 12:50 BP 123/81 12/20/22 12:50 Pulse Ox 99 12/20/22 12:50 O2 Del Method Room Air 12/20/22 12:50 Allergies Allergy/AdvReac Type Severity Reaction Status Date / Time hydrocodone [From Vicodin] Allergy Intermediate Agitated Verified 12/19/22 05:17 ibuprofen AdvReac Unknown Other Verified 12/19/22 05:17 Yellow Hornet Allergy Intermediate Anaphylactic Uncoded 12/19/22 05:17 Shock [place] Allergy Intermediate Anaphylactic Uncoded 12/19/22 05:17 Shock Home Medications Medication Instructions Recorded Confirmed Type bupropion HCl 150 mg 24 hr tablet, 150 mg PO QAM #30 tabs 11/29/22 12/19/22 Rx extended release Laboratory Tests 12/20/22 05:43 WBC 10.3 H K/mm3 (4.5-10.0) RBC 4.35 L M/mm3 (4.6-6.20) Hgb 13.6 L g/dL (14.0-18.0) Hct 40.5 L % (42.0-52.0) MCV 93.1 fl (80-100) MCH 31.3 pg (26-34) MCHC 33.6 g/dl (32-36) RDW 12.3 % (11.5-14.5) Plt Count 172 k/mm3 (150-375) MPV 9.6 fl (7.4-10.4) Immature Gran % (Auto) 0.4 % (0-0.5) Neut % (Auto) 66.2 % (45.5-73.1) Lymph % (Auto) 19.9 % (18.3-44.2) [place] % (Auto) 12.6 H % (2.6-8.5) Eos % (Auto) 0.6 % (0-4.4) Baso % (Auto) 0.3 % (0.2-1.2) Lymph # (Auto) 2.05 K/mm3 (0.9-3.2) [place] # (Auto) 1.3 H K/mm3 (0.1-0.6) Eos # (Auto) 0.1 K/mm3 (0-0.3) Baso # (Auto) 0.0 K/mm3 (0.0-0.1) Abs Immat Gran (auto) 0.04 H K/mm3 (0.00-0.031) Absolute Neuts (auto) 6.8 H K/mm3 (1.3-6.7) Absolute Nucleated RBC 0.0 K/mm3 (0.0-0.012) Nucleated RBC % 0.0 % (0.0-0.2) Sodium 134 L mmol/L (137-145) Potassium 3.8 mmol/L (3.4-5.0) Chloride 103 mmol/L (98-107) Carbon Dioxide 27 mmol/L (22-30) Anion Gap 4 L mmol/L (8-16) BUN 14 D mg/dL (9-20) Creatinine 1.20 mg/dL (0.7-1.3) Estim Creat Clear Calc 73 ml/min Estimated GFR > 60 (59 - ) Glucose 83 mg/dL (65-110) Lactic Acid 0.8 mmol/L (0.7-2.0) Calcium 8.5 mg/dL (8.4-10.2) Magnesium 1.8 mg/dL (1.6-2.3) Total Bilirubin 1.1 mg/dL (0.2-1.3) AST 24 U/L (17-59) ALT 21 U/L (6-50) Alkaline Phosphatase 30 L U/L (38-126) Total Protein 6.0 L g/dL (6.3-8.2) Albumin 3.5 g/dL (3.5-5.1) TSH (Reflex) 1.980 uIU/mL (0.465-4.68) Patient hx anesthesia problems: none Family hx anesthesia problems: none Results Review: All pre-operative results and documents have been reviewed as part of the pre-operative evaluation. 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
--- NOTE | 2022-12-20 14:40 | W.PM.PROC2 ---
Procedure Note - Detailed Date of Procedure 12/20/22 Pre-op Diagnosis Left ureteric stone Post-op Diagnosis Same Procedure Performed Left ESWL Surgeon Jason Clark MD Anesthesia General Description of Procedure The patient was brought to the operative suite where he was placed in the supine position on the Dornier lithotripsy table. The focal point of the lithotripter was placed at a 5mm left proximal ureteral calculus. A total of 3000 shocks were delivered at a power setting of 5. There appeared to be good fragmentation of the stone. The patient tolerated the procedure well and was taken to the recovery room in good condition. Urine Output 200 Drains No Packing No Pathology None sent Complications No immediate complications
== END 2022-12-20 17:00 | disposition home or self-care (01) ==
LOC: ANHED 09:12 → ANH3MEDSUR 10:59
PROVIDERS: Emergency Medicine; Nurse Practitioner; Urology; Admitting Provider Family Medicine; Emergency Provider Emergency Medicine; PCP Family Medicine; Visit Provider Chiropractor
PROC: (CPT 50590; principal; 2022-12-20 13:30)
DX: N13.2 Hydronephrosis with renal and ureteral calculous obstruction (principal); Z98.84 Bariatric surgery status; D72.829 Elevated white blood cell count, unspecified; E66.3 Overweight; Z68.26 Body mass index [BMI] 26.0-26.9, adult; F17.220 Nicotine dependence, chewing tobacco, uncomplicated; Z87.442 Personal history of urinary calculi; Z79.899 Other long term (current) drug therapy
CPT/HCPCS: 50590; 36415; 74018; 74176; 80053; 81001; 83605; 83735; 84443; 85025; 96361; 96374; 96375; 96376; 99285; A9270; G0378; J1100; J1170; J1956; J2250; J2405; J2704; J7030; J7120

== ENCOUNTER 2023-09-09 15:21 | Emergency (ER) | payer OTHER, SELFPAY ==
[2023-09-09 15:36] VITALS: BP 116/69; PULSE 86; RESP 16; TEMP 39.3; O2SAT 99
[2023-09-09 15:37] VITALS: BP 116/69; PULSE 86; RESP 16; TEMP 39.3; O2SAT 99
--- NOTE | 2023-09-09 15:52 | ED.URI ---
HPI - URI/Sore Throat General Chief Complaint: Upper Respiratory Infection Stated Complaint: chest/nasal congestion Time Seen by Provider: 09/09/23 15:45 Source: patient Mode of arrival: ambulatory Limitations: no limitations History of Present Illness HPI Narrative: Taras is a 38-year-old male patient presenting to the clinic today with complaints of fever, chest congestion, sore throat, and nasal congestion since Friday. Temperature today is 39.3? C. elicited complaint: fever, cough, sore throat and nasal congestion Related Data Allergies Allergy/AdvReac Type Severity Reaction Status Date / Time hydrocodone [From Vicodin] Allergy Intermediate Agitated Verified 09/09/23 15:36 ibuprofen AdvReac Unknown Other Verified 09/09/23 15:36 [place] Allergy Intermediate Anaphylactic Uncoded 09/09/23 15:36 Shock [place] Allergy Intermediate Anaphylactic Uncoded 09/09/23 15:36 Shock Review of Systems Review of Systems: Pertinent positives per HPI. Patient denies any fever, chills, rash, headache, visual changes, dizziness, cough, shortness of breath, chest pain, palpitations, nausea, vomiting, diarrhea, constipation, abdominal pain, or any urinary issues. 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 He has 5 children. 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 Code status full code Smoking status: Former smoker Smokeless tobacco user: chewing tobacco Second hand tobacco smoke exposure: No Alcohol intake: current Alcohol use details: rarely Substance use: never Substance use type: does not use Lack of Transportation: No Lack of Food: Never True Current Housing: I Have Housing Concerned About Future Housing: No Difficulty Paying Gas/Electric Bills: No Difficulty Paying for Meds: No Currently Unemployed: No Education: High School Diploma/GED Difficulty w/ Childcare or Family Care: No Living arrangements: with family Additional living arrangements comments: and 5 boys Occupation/Education: occupation Gender identity (if verbalized by the patient): Male Spiritual care concerns: No Agree to blood products: No Comments At the time of my signature, I reviewed and agree with the nursing past medical, surgical, social, and family history. There is no relevant family history pertinent to the patient complaint. Exam Narrative: General: Well-developed, well nourished, in no apparent distress Head: Normocephalic, atraumatic Eyes: Pupils equally round and reactive to light bilaterally, EOM intact, sclera and conjunctive clear, no discharge, lids normal Ears: TMs intact and clear, ear canals clear, no drainage, grossly hearing normal. Nose: Nares patent, clear nasal discharge, no inflammation, no sinus tenderness. Mouth: Oral pharynx red, tonsils surgically absent, no lesions or masses, good dentition, MMM. Neck: Supple, trachea m
== END 2023-09-09 16:25 | disposition home or self-care (01) ==
PROVIDERS: Emergency Provider Nurse Practitioner Family; PCP Family Medicine
DX: J02.0 Streptococcal pharyngitis (principal); Z20.822 Contact with and (suspected) exposure to COVID-19
CPT/HCPCS: 87426; 87804; 87880; 99213; G0463

== ENCOUNTER 2024-11-17 06:57 | Emergency (ER) | payer OTHER, SELFPAY ==
--- NOTE | ~2024-11-17 | XR_ITS ---
EXAMINATION: XR shoulder LT min 2V DATE: 11/17/2024 07:47 INDICATION: Left shoulder pain post fall TECHNIQUE: AP internally and externally rotated, AP oblique externally rotated and transscapular Y vi ews of the left shoulder were obtained. COMPARISON: None FINDINGS: Normal alignment. No fracture. Glenohumeral joint is normal. Mild acromioclavicular osteoarthritis w ith subarticular cystic changes at the head of the clavicle. Visualized portions of the lungs are antonio ar. Soft tissues are unremarkable. IMPRESSION: No acute osseous abnormality. Reviewed, dictated and finalized at location A.
--- NOTE | ~2024-11-17 | XR_ITS ---
XR elbow LT min 3V 11/17/2024 07:47 Indication: Left elbow pain after fall Procedure: 4 views left elbow Comparison: No prior studies for comparison. Findings: No significant joint effusion. Small ossific density at the olecranon process likely repres ents an enthesophyte or remote posttraumatic change. No acute fracture identified. No foreign bodies. Impression: 1: No acute fracture. Reviewed, dictated and finalized at location A. Impression: 1: No acute fracture.
--- OUTSIDE RECORDS SUMMARY | 2024-11-17 06:59 | XMS_ITS | Encounter Summary ---
Author Organization [facility] Address [address] [place] [address] Care Team Providers Care Registered Nurse Cardiovascular Icu Name Role Phone Vika Mosquera MD Primary Care Provider [phone] Encounter Details Date Type Department Care Team (Late st Contact Info) Description 11/19/2019 Abstract [facility] Non Integrated Provider [address] [place] [address] [place] [address] [place] [address] [place] [address] Social History Tobacco Use Types Packs/Day Years Used Date Smoking Tobacco: Former Cigarettes Smokeless Tobacco: Former Alcohol Use Standard Drinks/Week Comments Not Currently 0 (1 standard drink = 0.6 oz pur e alcohol) Sex and Gender Information Value Date Recorded Sex Assigned at Not on file Legal Sex Male 10:15 PM CDT Gender Identity Not on file Sexual Orientation Not on file COVID-19 Exposure Response Date Recorded In the last month, have you been in contact with someone who was confirmed or suspected to have Coronavirus / COVID-19? No / Unsure 11/17/2019 8:41 AM CDT documented as of this encounter Plan of Treatment Not on file documented as of this encounter Visit Diagnoses Not on filedocumented in this encounter Care Teams Registered Nurse Cardiovascular [facility]cu Relationship Specialty Start Date End Date Vika Mosquera MD [address] [place] [id number] PCP - General Family Practice 06/04/19 documented as of this encounter
--- OUTSIDE RECORDS SUMMARY | 2024-11-17 06:59 | XMS_ITS | Continuity of Care Document ---
Author Organization [employer] [place] Address [address] [place] [address] [address] [place] [address] Phone Care Team Providers Care Spreading Machine Operator Name Role Phone Nakul Salcido PT Unavailable Unavailable Procedures Procedure Date Therapeutic Exercise Therapeutic Activities Neuromuscular Re-Ed Manual Therapy Therapeutic Activities Neuromuscular Re-Ed Therapeutic Exercise Manual Therapy Progress Note Therapeutic Activities Neuromuscular Re-Ed Therapeutic Exercise Manual Therapy Therapeutic Activities Neuromuscular Re-Ed Therapeutic Exercise Manual Therapy Therapeutic Exercise Therapeutic Activities Neuromuscular Re-Ed Manual Therapy Therapeutic Activities Therapeutic Exercise Manual Therapy Neuromuscular Re-Ed Therapeutic Activities Therapeutic Exercise Manual Therapy Neuromuscular Re-Ed Therapeutic Activities Neuromuscular Re-Ed Manual Therapy Therapeutic Exercise Neuromuscular Re-Ed Therapeutic Activities Progress Note Manual Therapy Therapeutic Exercise Neuromuscular Re-Ed Therapeutic Activities Therapeutic Exercise Manual Therapy Neuromuscular Re-Ed Therapeutic Activities Therapeutic Exercise Manual Therapy Therapeutic Activities Therapeutic Exercise Neuromuscular Re-Ed Manual Therapy Therapeutic Activities Neuromuscular Re-Ed Therapeutic Exercise Manual Therapy PT Evaluation Moderate Complexity Therapeutic Activities Manual Therapy Therapeutic Exercise Advance Directives Directive Yes / No Effective Date File Name No Information Encounters Encounter Description Practice Location Reason(s) For Visit Diagnoses Date Provider Providers Copied on Encounter [facility] [place] [address], [id number], tel:[phone] [place] No Information 2 Omari Nakul. . [facility], [place], [id number], tel:[phone] [place] No Information 2 Omari Nakul. . [facility], [place], [id number], tel:[phone] [place] No Information 2 Omari Nakul. . [facility], [place], [id number], tel:[phone] [place] No Information 2 Omari Nakul. . [facility], [place], [id number], tel:[phone] [place] No Information 2 Omari Nakul. . [facility], [place], [id number], tel:[phone] [place] No Information 2 Omari Nakul. . [facility], [place], [place], [id number], tel:[phone] [place] No Information 2 Omari Nakul. . [facility], [place], [place], [address], tel:[phone] [place] No Information 2 Omari Nakul. . [facility], [place], [place], [address], tel:[phone] [place] No Information 2 Omari Nakul. . [facility], [place], [place], [id number], tel:[phone] [place] No Information 2 Omari Nakul. . [facility], [place], [place], [address], tel:[phone] [place] No Information 2 Omari Dos Santosyn. . [facility], [id number], tel:[phone] [place] No Information 2 Omari Dos Santosyn. . [facility], [place], [id number], tel:[phone] [place] No Information 2 Omari Nakul. . [facility], [id number], tel:[phone] [place] No Information 2 Omari Nakul. . Family History Family Member Type Diagnosis Age At Onset No Information Payers Payer name Insurance type Covered constitution party ID Elisabeth tomaspatrick(s) [employer] [place] 00 Social History Type Description Quantity Date Captured Comments Sex Male Smoking Status No Information Chief Complaint And Reason For Visit No Information Reason For Referral Reason For Referral No Information Plan Of Treatment Date Type Action Status Goal Tobacco Cessation Counseling completed Goal Tobacco cessation counseling completed History Of Present Illness Encounter Date Complaint History Of Prese nt Illness No Information Functional Status Date Functional Assessmen t No Information Instructions Date Instruction Additional Infor kamar Prescribed activity/exercise edu cation Related to Overweight Dietary needs education Related to Overweight Assessments Type Assessment Date No Information Patient Care Teams Name Effective Dates (start - stop) Status Members No Information
--- OUTSIDE RECORDS SUMMARY | 2024-11-17 06:59 | XMS_ITS | Clinical Summary ---
Author Organization [facility] Address [address] [address] Care Team Providers Care Inventory Taker Name Role Phone Vika Mosquera MD Primary Care Provider [phone] Source Comments [facility],non-owned Affiliates and Associated Physician Practices is amultiple site organization consisting of ambulatory clinics and hospital sitesin [place], [place], [place] and [place]. This disclosure is being madepursuant to the Care Everywhere program and may not contain all information available regarding this patient. Last updated 18.[facility] Allergies Active Allergy Reactions Criticality Noted Date Comments Hydrocodone Psychiatric Medium 05/08/2022 Ibuprofen GI Discomfort 05/08/2022 Medications * Be aware that medications may not be up to date on this document. Alwaysverify current medications with the patient. 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 Gender Identity Not on file Sexual Orientation Not on file Last Filed Vital Signs Vital Sign Reading Time Taken Comments Blood Pressure 109/65 07/08/2022 9:06 AM MOBILE HOME LOT UTILITY WORKER Pulse 68 07/08/2022 9:06 AM MOBILE HOME LOT UTILITY WORKER Temperature 36.7 C (98.1 F) 07/08/2022 9:06 AM MOBILE HOME LOT UTILITY WORKER Respiratory Rate 20 05/27/2022 1:32 PM MOBILE HOME LOT UTILITY WORKER Oxygen Saturation 99% 07/08/2022 9:06 AM MOBILE HOME LOT UTILITY WORKER Inhaled Oxygen Concentration - - Weight 79.4 kg (175 lb) 07/08/2022 9:06 AM MOBILE HOME LOT UTILITY WORKER Height 154.9 cm (5' 1) 07/08/2022 9:06 AM MOBILE HOME LOT UTILITY WORKER Body Mass Index 33.07 07/08/2022 9:06 AM MOBILE HOME LOT UTILITY WORKER Plan of Treatment Health Maintenance Due Date Last Done Comments HIV SCREENING 2000 HEPATITIS C SCREENING 06/17/2003 DTAP/TDAP/TD VACCINES (1 - Tdap) 2004 HEPATITIS B VACCINE (1 of 3 - 19+ 3-dose series) 2004 COVID-19 VACCINE (1 - 2023-2 5 season) 2024 DEPRESSION SCREENING 06/23/2024 INFLUENZA VACCINE (Season Ended) 2025 ZOSTER VACCINE (1 of 2) 2035 HIB VACCINE Aged Out No longer eligi ble based on patient's age to complete this topic HPV VACCINE Aged Out No longer eligi ble based on patient's age to complete this topic MENINGOCOCCAL (Group B) VACC INE SHARED DECISION-MAKING Aged Out No longer eligibl e based on patient's age to complete this topic MENINGOCOCCAL GROUPS A/C/Y/W VACCINE Aged Out No longer eligible b ased on patient's age to complete this topic PNEUMOCOCCAL VACCINE Aged Out No long er eligible based on patient's age to complete this topic Insurance [facility] Care Teams Inventory Taker Relationship Specialty Start Date End Date Vika Mosquera MD [address] [place] [address] PCP - General 05/27/22
--- OUTSIDE RECORDS SUMMARY | 2024-11-17 06:59 | XMS_ITS | Clinical Summary ---
Author Organization [facility] Address [address] [place] [address] Phone Care Team Providers Care Supervisor Wet Room Name Role Phone Vika Mosquera MD Primary Care Provider [phone] Allergies Active Allergy Reactions Criticality Noted Date Comments Hydrocodone-Acetaminophen Other (See Comments) 06/04/2019 Violent Medications traMADoL (ULTRAM) 50 mg tabletIndicatio ns:Morbid obesity with body mass index of 40.0-49.9 (CMS/HCC) Take 2 Tablets (100 mg) by mouth every 6 hours as needed for Pain. 28 Tablet 11/18/2019 2:33 PM CDT 0 Active ondansetron (Zofran ODT) 4 mg Tablet, Rapid DissolveIndicat ions:nausea Place 1 Tablet (4 mg) under tongue every 6 hours as needed for Nausea/Emesis. 10 Tablet 11/18/2019 2:33 PM CDT 0 Active naloxone (NARCAN) 4 mg/spray Hardy, Non-Aerosol EMERGENCY USE ONLY: Administer 1 spray (4 mg) in one nostril one time. May repeat in alternating nostrils every 2-3 min until responsive or EMS arrives. 2 Each 3 0 Active Active Problems Problem Noted Date Diagnosed Date Post-op pain 11/18/2019 Post-operative nausea and vomiting 11/18/2019 General medical exam 11/17/2019 Elevated liver enzymes 11/17/2019 Family History Medical History Relation Name Comments Heart Disease Father Relation Name Status Comments Father Social History Tobacco Use Types Packs/Day Years [...] Sign Reading Time Taken Comments Blood Pressure 181/95 11/18/2019 12:38 PM CDT Pulse 90 11/18/2019 12:38 PM CDT Temperature 36.9 C (98.4 F) 11/18/2019 12:38 PM CDT Respiratory Rate 18 11/18/2019 12:3 8 PM CDT Oxygen Saturation 100% 11/18/2019 12: 38 PM CDT Inhaled Oxygen Concentration - - Weight 132.8 kg (292 lb 12.8 oz) 11/18/2019 4:23 AM CDT Height 177.8 cm (5' 10) 11/17/2019 8:42 AM CDT Body Mass Index 42.01 11/17/2019 8:42 AM CDT Plan of Treatment Health Maintenance Due Date Last Done Comments DTAP/TDAP/TD VACCINES (1 - Tdap) 2004 HEPATITIS B VACCINES (1 of 3 - 19+ 3-dose series) 2004 INFLUENZA VACCINE (#1) 2024 HPV VACCINES Aged Out No longer eligi ble based on patient's age to complete this topic Medical Devices Implanted Type Area Administrative Aide Device Identifier Shelf Expiration Date Model / Serial / Lot Seamguard Endogia 60 Blk [id number] - [id number] Implanted:Qty : 2 on 11/17/2019 by Lucius Shepherd MD at [facility] Biological N/A: Stomach [employer] 06/02/2022 [id number] / / [id number] Seamguard Endogia 60 Prpl [id number] - [id number] Implanted:Qty : 3 on 11/17/2019 by Lucius Shepherd MD at [facility] Biological N/A: Stomach [employer] 06/03/2022 [id number] / / [id number] Insurance [employer] HMO RX PRECIADO PLANS (INTERNAL) [facility] Plans RX [facility] [employer] Advance Directives For more information, please contact: [phone] * Full Code (Latest Code Status on File) Date Activated Date Inactivated Comments 11/17/2019 1:19 PM 11/18/2019 5:16 PM * Full Code Date Activated Date Inactivated Comments 11/17/2019 9:13 AM 11/17/2019 1:19 PM * Full Code Date Activated Date Inactivated Comments 11/17/2019 7:56 AM 11/17/2019 9:13 AM Care Teams Supervisor Wet Room Relationship Specialty Start Date End Date Vika Mosquera MD [address] [place] [address] PCP - General Family Practice 06/04/19
[2024-11-17 07:09] VITALS: BP 126/76; PULSE 69; RESP 18; TEMP 36.6; O2SAT 99
--- OUTSIDE RECORDS SUMMARY | 2024-11-17 07:34 | XMS_ITS | Clinical Summary ---
Author Organization [facility] Address [address] [place] [address] Phone Care Team Providers Care Stringing Machine Operator Name Role Phone Vika Mosquera MD Primary Care Provider [phone] Allergies Active Allergy Reactions Criticality Noted Date [...] CDT 0 Active naloxone (NARCAN) 4 mg/spray Vivian, Non-Aerosol EMERGENCY USE ONLY: Administer 1 spray [...] this topic Medical Devices Implanted Type Area Paraoptometric Device Identifier Shelf Expiration Date Model / Serial / Lot Seamguard Endogia 60 Blk [id number] - [id number] Implanted:Qty : 2 on 11/17/2019 by Lucius Shepherd MD at [facility] [employer] N/A: Stomach [employer] 06/02/2022 [id number] / / [id number] Seamguard Endogia 60 Prpl [id number] - [id number] Implanted:Qty : 3 on 11/17/2019 by Lucius Shepherd MD at [facility] Biological N/A: Stomach [employer] 06/03/2022 [id number] / / [id number] Insurance [employer] HMO RX PRECIADO PLANS (INTERNAL) [facility] Plans RX [facility] [employer] Advance Directives For more information, please contact: [phone] * Full Code (Latest Code Status on File) Date Activated Date Inactivated Comments 11/17/2019 1:19 PM 11/18/2019 5:16 PM * Full Code Date Activated Date Inactivated Comments 11/17/2019 9:13 AM 11/17/2019 1:19 PM * Full Code Date Activated Date Inactivated Comments 11/17/2019 7:56 AM 11/17/2019 9:13 AM Care Teams Stringing Machine Operator Relationship Specialty Start Date End Date Vika Mosquera MD [address] [place] [address] PCP - General Family Practice 06/04/19
--- OUTSIDE RECORDS SUMMARY | 2024-11-17 07:34 | XMS_ITS | Clinical Summary ---
Author Organization [facility] Address [address] [place] [address] Care Team Providers Care Grades 1 Thru 6 Visiting Teacher Name Role Phone Vika Mosquera MD Primary Care Provider Source Comments [facility],non-owned Affiliates and Associated Physician Practices is amultiple site organization consisting of ambulatory clinics and hospital sitesin [place], [place], [place] and [place]. This disclosure is being madepursuant to the Care Everywhere program and may not contain all information available regarding this patient. 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 Gender Identity Not on file Sexual Orientation Not on file Last Filed Vital Signs Vital Sign Reading Time Taken Comments Blood Pressure 109/65 07/08/2022 9:06 AM MANAGER SHELL Pulse 68 07/08/2022 9:06 AM MANAGER SHELL Temperature 36.7 C (98.1 F) 07/08/2022 9:06 AM MANAGER SHELL Respiratory Rate 20 05/27/2022 1:32 PM MANAGER SHELL Oxygen Saturation 99% 07/08/2022 9:06 AM MANAGER SHELL Inhaled Oxygen Concentration - - Weight 79.4 kg (175 lb) 07/08/2022 9:06 AM MANAGER SHELL Height 154.9 cm (5' 1) 07/08/2022 9:06 AM MANAGER SHELL Body Mass Index 33.07 07/08/2022 9:06 AM MANAGER SHELL Plan of Treatment Health Maintenance Due Date [...] patient's age to complete this topic Insurance [facility] Care Teams Grades 1 Thru 6 Visiting Teacher Relationship Specialty Start Date End Date Vika Mosquera MD [address] [place] [address] PCP - General 05/27/22
--- OUTSIDE RECORDS SUMMARY | 2024-11-17 07:34 | XMS_ITS | Encounter Summary ---
Author Organization [facility] Address [address] [place] [address] Care Team Providers Care Flower Grader Name Role Phone Vika Mosquera MD Primary Care Provider [phone] Encounter Details Date Type Department Care Team (Late st Contact Info) Description 11/19/2019 Abstract [facility] Non Integrated Provider [address] [place] [address] [place] [address] [address] [place] [address] Social History Tobacco Use Types [...] on filedocumented in this encounter Care Teams Flower Grader Relationship Specialty Start Date End Date Vika Mosquera MD [address] [place] [id number] PCP - General Family Practice 06/04/19 documented as of this encounter
--- NOTE | 2024-11-17 08:30 | ED.GENADULT ---
HPI - General Adult General Chief complaint: Extremity Injury, Upper Stated complaint: shoulder injury Time Seen by Provider: 11/17/24 07:11 History of Present Illness HPI narrative: Patient 39-year-old gentleman presents emergency department with chief complaint of left upper extremity pain. Patient reports that he was climbing and heavy equipment slipped at work and caught himself with his left arm the patient states that he was holding all of his weight on the left are reports that he had pain that radiates down his left arm does report that he has little bit of tingling radiating down the ulnar aspect of the arm. The patient states the pain is just posterior to the shoulder on the left side. Patient also reports that he has pain in the left elbow. Related Data Allergies Allergy/AdvReac Type Severity Reaction Status Date / Time hydrocodone (From Vicodin) Allergy Intermediate Agitated Verified 11/17/24 07:27 ibuprofen AdvReac Unknown Other Verified 11/17/24 07:27 NSAIDS (Non-Steroidal AdvReac Other Verified 11/17/24 07:27 Anti-Inflamma Yellow Hornet Allergy Intermediate Anaphylactic Uncoded 11/17/24 07:27 Shock [place]et Allergy Intermediate Anaphylactic Uncoded 11/17/24 07:27 Shock Review of Systems Review of Systems: A 10 system review of systems was completed on the patient and is negative except for what is stated in the HPI. Nursing and ancillary documentation was reviewed. 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 Kidney stones Hymenoptera allergy Tobacco abuse Surgical History Surgical History H/O gastric bypass H/O gastric bypass S/P laparoscopic sleeve gastrectomy History of tonsillectomy and adenoidectomy Family History Family History Father Heart disease Grandparent Parkinsons disease Grandparent Diabetes mellitus Grandparent Heart attack Grandparent Lung cancer Cerebrovascular accident Father Hypertension Family history of coronary artery disease Grandparent Hypertension Family history of lung cancer Family history of coronary artery disease Social History Social History Social History: The patient currently lives with his fiaristidese. He has 5 children. 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 He does not have a power county attorney. Code status full code Smoking status: Former smoker Smokeless tobacco user: chewing tobacco Second hand tobacco smoke exposure: No Alcohol intake: current Alcohol use details: rarely Substance use: never Substance use type: does not use Lack of Transportation: No Lack of Food: Never True Current Housing: I Have Housing Concerned About Future Housing: No Difficulty Paying Gas/Electric Bills: No Difficulty Paying for Meds: No Currently Unemployed: No Education: High School Diploma/GED Difficulty w/ Childcare or Family Care: No Living arrangements: with family Additional living arrangements comments: and 5 boys Occupation/Education: occupation Gender identity (if verbalized by the patient): Male Spiritual care concerns: No Agree to blood products: No Exam Narrative: GENERAL: Well-appearing, well-nourished, and in no acute distress. HEAD: Normocephalic, atraumatic. EYES: PERRLA and EOMI. ENT: Nares clear, no rhinorrhea or epistaxis. Mucous membranes moist. NECK: Supple. CHEST: Clear to auscultation. No respiratory distress. HEART: Regular rate and rhythm. No murmur heard. Normal peripheral pulses. ABDOMEN: Soft, nontender, nondistended, normal active bowel sounds. EXTREMITIES: Normal range of motion patient has tenderness to palpation in the posterior aspect of the left shoulder no deformity noted there is also mild tenderness to palpation in the left elbow. No swelling no deformity. Patient has good foiling machine operator strength. No edema. SKIN: Warm, dry, no rash. NEURO: No focal deficits. Alert and oriented x3. PSYCH: Normal mood and affect. Course Vital Signs Vital signs: Vital Signs Temperature 36.6 C 11/17/24 07:09 Pulse Rate 69 11/17/24 07:09 Respiratory Rate 18 11/17/24 07:09 Blood Pressure 126/76 11/17/24 07:09 Pulse Oximetry 99 11/17/24 07:09 Temperature 36.6 C 11/17/24 07:09 Pulse Rate 69 11/17/24 07:09 Respiratory Rate 18 11/17/24 07:09 Blood Pressure 126/76 11/17/24 07:09 Pulse Oximetry 99 11/17/24 07:09 Medical Decision Making MDM Narrative Medical decision making narrative: Differential diagnosis includes strain, muscle tear, fracture, dislocation Plain film x-rays left elbow and left shoulder showed no evidence of dislocation no evidence of fracture. At this time the patient will be placed in a sling and will be instructed to follow-up with orthopedic surgery Vital Signs Vital Signs: Vital Signs Temperature 36.6 C 11/17/24 07:09 Pulse Rate 69 11/17/24 07:09 Respiratory Rate 18 11/17/24 07:09 Blood Pressure 126/76 11/17/24 07:09 Pulse Oximetry 99 11/17/24 07:09 Temperature 36.6 C 11/17/24 07:09 Pulse Rate 69 11/17/24 07:09 Respiratory Rate 18 11/17/24 07:09 Blood Pressure 126/76 11/17/24 07:09 Pulse Oximetry 99 11/17/24 07:09 Discharge Plan Discharge Clinical Impression: Muscle strain of left shoulder Patient Disposition: Home Condition: Stable Instructions: Antibiotic Form, How to Use a Sling (ED) Patient Language: Slovenian Prescriptions: No Action amoxicillin 875 mg tablet 875 mg PO Q12H 10 Days Qty: 20 0RF Follow-up/Referrals: Toan Lyn MD [Physician] - PHYSICIAN,BAND SAW OPERATOR CAKE CUTTING [Primary Care Provider] - Felice Ferguson MD [Physician] - Time of Disposition: 08:33
--- NOTE | 2024-11-17 08:55 | PC.NURSE ---
PT DISPLEASED ABOUT THE FACT THAT WE WON'T DO AN MRI HERE IN THE ED. I EXPLAINED TO PT THAT MRI'S ARE ONLY PREFORMED IN THE ED IN EXTENUATING CIRCUMSTANCES AND ARE NOT ROUTINELY DONE. I EXPLAINED THAT IF HE GOES TO [facility]THO THEY WILL THEN AUTHORIZE THE TESTING IF NEEDED.
== END 2024-11-17 09:00 | disposition home or self-care (01) ==
PROVIDERS: Emergency Provider Emergency Medicine
DX: S46.912A Strain of unspecified muscle, fascia and tendon at shoulder and upper arm level, left arm, initial encounter (principal); X50.0XXA Overexertion from strenuous movement or load, initial encounter
CPT/HCPCS: 73030; 73080; 99284; A4565

== ENCOUNTER 2025-04-08 19:49 | Emergency (ER) | payer OTHER, SELFPAY ==
--- NOTE | 2025-04-08 19:54 | ED.WOUNDLAC ---
HPI - Wound/Laceration General Chief Complaint: Wound/Laceration Stated Complaint: Left Hand Thumb Laceration Time Seen by Provider: 04/08/25 19:54 Source: patient, RN notes reviewed and old records reviewed Mode of arrival: ambulatory Limitations: no limitations History of Present Illness HPI narrative: 39-year-old male presents to the [facility] with a laceration to the left thumb. Cut himself wall carving pumpkins. Per medical record last tetanus was April of 2022 Onset (ago): minute(s) Patient tetanus UTD: Yes Treatments prior to arrival: other (dressing) Related Data Home Medications ?Medication ?Instructions ?Recorded ?Confirmed ?Last Taken ?Type No Home Medications 04/08/25 04/08/25 Unknown History Allergies Allergy/AdvReac Type Severity Reaction Status Date / Time hydrocodone (From Vicodin) AdvReac Severe Agitated Verified 04/08/25 20:01 ibuprofen AdvReac Unknown Other Verified 04/08/25 20:00 NSAIDS (Non-Steroidal AdvReac Other Verified 04/08/25 20:00 Anti-Inflamma [place] Allergy Intermediate Anaphylactic Uncoded 11/17/24 07:27 Shock [place] Allergy Intermediate Anaphylactic Uncoded 11/17/24 07:27 Shock Review of Systems Review of Systems: All systems reviewed & are unremarkable except as noted in HPI and below Constitutional: Constitutional: Reports no additional constitutional complaints Musculoskeletal: Musculoskeletal: Reports no additional musculoskeletal complaints Integumentary/Breasts: Skin/Breast: Reports as per HPI and Reports wounds PMFSH Past Medical History Medical History Atopic dermatitis 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 Kidney stones Hymenoptera allergy Tobacco abuse Surgical History Surgical History H/O gastric bypass H/O gastric bypass S/P laparoscopic sleeve gastrectomy History of tonsillectomy and adenoidectomy Family History Family History Father Heart disease Grandparent Parkinsons disease Grandparent Diabetes mellitus Grandparent Heart attack Grandparent Lung cancer Cerebrovascular accident Father Hypertension Family history of coronary artery disease Grandparent Hypertension Family history of lung cancer Family history of coronary artery disease Social History Social History Social History: The patient currently lives with his fiancee. He has 5 children. 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 He does not have a power assistant attorney general. Code status full code Smoking status: Former smoker Smokeless tobacco user: chewing tobacco Second hand tobacco smoke exposure: No Alcohol intake: current Alcohol use details: rarely Substance use: never Substance use type: does not use Lack of Transportation: No Lack of Food: Never True Current Housing: I Have Housing Concerned About Future Housing: No Difficulty Paying Gas/Electric Bills: No Difficulty Paying for Meds: No Currently Unemployed: No Education: High School Diploma/GED Difficulty w/ Childcare or Family Care: No Living arrangements: with family Additional living arrangements comments: and 5 boys Occupation/Education: occupation Gender identity (if verbalized by the patient): Male Spiritual care concerns: No Agree to blood products: No Comments At the time of my signature, I reviewed and agree with the nursing past medical, surgical, social, and family history. There is no relevant family history pertinent to the patient complaint. Exam Const: General: cooperative, healthy appearing, comfortable, no acute distress, well developed, alert and well nourished Nutritional Appearance: well nourished Orientation/consciousness: patient oriented x3 Limitations: no limitations HENMT: Head: normal to inspection Eyes: General: appearance normal, both eyes and all related structures Alignment and Position: alignment normal Neck: Neck: normal visual inspection, full ROM, no lymphadenopathy and no meningeal signs Chest: Chest palpation & inspection: normal inspection of the chest Resp: Effort & Inspection: normal respiratory effort and able to speak in complete sentences Cardio: Rate: regular rate Skin: General skin exam: normal color and no rashes or lesions noted Wounds: wounds noted laceration left palmar hand size (3), bed beefy red, margins and open; no sutures, no [place] and without any surrounding erythema Neuro: General: patient oriented x3, gait normal, moves all extremities and no meningeal signs Cognition (Neuro): normal cognition Speech: normal speech Gait exam (Neuro): Normal gait present Extrem: General: normal to inspection, full ROM, capillary refill normal and normal gait Left upper extremity: hand neuromotor exam normal Details: wrist extension normal, thumb opposition normal, thumb IP flexion normal, thumb ADduction normal and fingers 2-5 ABduction normal, vascular exam radial pulse present and normal capillary refill, normal ROM of fingers, no swelling and laceration (left hand just below the thumb); no foreign bodies and no puncture wound Psych: Appearance: grossly normal and well kempt Mental Status: mental status grossly normal Speech and movement: Normal speech and movement present and Clear speech present Affect: normal affect Attitude: cooperative Course Course Level of Care: Express Care Visit Vital Signs Vital signs: Vital Signs Temperature 98.0 F 04/08/25 19:59 Pulse Rate 73 04/08/25 19:59 Respiratory Rate 18 04/08/25 19:59 Blood Pressure 121/69 04/08/25 19:59 Pulse Oximetry 98 04/08/25 19:59 Oxygen Delivery Room Air 04/08/25 19:59 Temperature 98.0 F 04/08/25 19:59 Pulse Rate 73 04/08/25 19:59 Respiratory Rate 18 04/08/25 19:59 Blood Pressure 121/69 04/08/25 19:59 Pulse Oximetry 98 04/08/25 19:59 Oxygen Delivery Room Air 04/08/25 19:59 Reviewed Procedures Laceration Laceration 1: Date: 04/08/25 Time: 20:00 Site: hand Side (If applicable): left Size (cm): 3 Description: linear Depth: simple, single layer Local Anesthetic: lidocaine 1% Amount of anesthesia used (mL): 4 Pre-repair: irrigated (300) ====== Skin Level ====== Skin layer closed with: nylon Size (cm): 5-0 Number of sutures: 4 Technique: simple, interrupted ====== Subcutaneous Layer ====== ====== Muscle Layer ====== ====== Tendon Layer ====== Dressing: Explained procedure to patient. Verbal consent obtained. Area irrigated with wound cleanser and 300 mils of normal saline. Visualized base of wound. No foreign bodies noted. Injection of lidocaine total of 4 mils throughout the wound. It is anesthesia achieved. Four sutures placed. Patient tolerated procedure well MDM - Wound/Laceration MDM Narrative Medical decision making narrative: Patient presents with a laceration to the left hand. Full range of motion. No foreign bodies. Area irrigated, sutured, patient tolerated well. Patient sitting in exam room. Nontoxic in vitals are stable. Up-to-date on tetanus. Patient is appropriate for outpatient treatment with close follow-up Discharge instructions reviewed with patient, as well as provided in writing per nursing staff. The instructions also include specific and strict return/GO TO THE ER as well as f/u information. All questions have been answered, and the patient deny any further questions with discharge and discharge plan. Some parts of this dictation were generated by voice recognition software and may contain typographical and/or grammatical inaccuracies. Differential Diagnosis Differential diagnosis: Likely laceration, abscess, abrasion and avulsion of skin Critical Care Time Critical Care Time Critical Care Time: No Discharge Plan Discharge Clinical Impression: Laceration of hand, left Qualifiers: Encounter type: initial encounter Foreign body presence: without foreign body Qualified Code(s): S61.412A - Laceration without foreign body of left hand, initial encounter Patient Disposition: Home Condition: Stable Instructions: Antibiotic Form, Care For Your Stitches (DC), Laceration (ED) Additional Instructions: Keep area clean and dry. Wash with warm soapy water, pat dry at least 2-3 times per day. Keep a dressing over it when not at home. Keep it open to air minimum of 4 hours while at home every day Follow-up with primary care provider in 10-14 days to have sutures removed Patient Language: [place] Prescriptions: No Action No Home Medications Follow-up/Referrals: PHYSICIAN,REGULATORY AFFAIRS ASSISTANT [Primary Care Provider, Internal Medicine] Stand Alone Forms: Work/School Release IP Time of Disposition: 20:17
[2025-04-08 19:59] VITALS: BP 121/69; PULSE 73; RESP 18; TEMP 36.7; O2SAT 98
== END 2025-04-08 20:21 | disposition home or self-care (01) ==
PROVIDERS: Emergency Provider Nurse Practitioner
DX: S61.412A Laceration without foreign body of left hand, initial encounter (principal); W45.8XXA Other foreign body or object entering through skin, initial encounter; F17.220 Nicotine dependence, chewing tobacco, uncomplicated; Z98.84 Bariatric surgery status
CPT/HCPCS: 12002; 99212; G0463